=== PATIENT | male | born 1945 | race Caucasian/White ===

== ENCOUNTER → 2016-05-11 | Outpatient (CLI) | payer MEDICARE, OTHER ==
[~2016-05-11] MED LIST: ASCORBIC ACID500 M2 PO; ASPIRIN EC81 MG PO; BUSPIRONE 5MG TA5 MG PO; CENTRUM1 TAB PO; FLEXERIL10 MG PO; GEMFIBROZIL600 M1 PO; IRON65 MG PO; JANUVIA50 MG PO; LISINOPRIL 20MG20 MG PO; LORAZEPAM1 MG PO; METFORMIN1000 MG PO; METOPROLOL SUC100 M1 PO; MULTIVITAMIN1 TA2 PO; NAPROXEN SODIU500 MG PO; NATURE'S BLE1000 MCG PO; PHENERGAN 25MG.25 M1 PO; PROTEIN1 PDR PO; SYNTHROID 0.00.05 MG PO; VITAMIN B COMPL1 TA3 PO; VITAMIN B121000 MC2 SL; VITAMIN B1250 MG; VITAMIN B1250 MG PO; VITAMIN D32000 I1 PO
--- NOTE | 2016-05-11 18:55 | RADIOLOGY REPORT PS360 ---
CHEST(2 VIEWS-NOT PORTABLE) ORDERING PHYSICIAN : Edwardo Merritt MD PATIENT AGE: 70 years GENDER: Male INDICATION: Pneumonia. HISTORY of surgery right lung and cough. COMMUNITY ACQUIRED PNEMONIA PROCEDURE: CHEST(2 VIEWS-NOT PORTABLE) COMPARISON: PA and lateral chest 01/07/2015 01/01/2015 density at the lateral right base likely reflects chronic change. However if symptoms persist encourage follow-up as there are abnormalities in we do not have a baseline to confirm this as in the stable appearance FINDINGS: There is been improvement with regression of the posterior pleural effusion pleural thickening and parenchymal density since January 07, 2015. However on the frontal projection Again see Generous pleural thickening at right CP angle with elevation right hemidiaphragm noted.. Unfortunately no interval chest film since that time to establish new baseline.. On today's exam there is 3 cm x 2 cm density at lateral aspect right base towards right CP angle. I favor this is due to scarring but would benefit from follow-up. There is also suggestion of focal round density right infrahilar region measuring 2.2 cm. This may also merely reflect the scarring, or generous pulmonary artery but warrants follow-up. On lateral view small less than 1 cm likely granuloma projected over the RML appears stable Consider follow-up 2 view chest over the next 4- [address] chest follow-up would be more helpful definitive reestablish new baseline exclude any new findings . Heart is normal in size. Mediastinal structures appear satisfactory and stable. T-spine appears stable with degenerative changes and marginal osteophytes throughout. No active disease in the chest... IMPRESSION Residual pleural scarring at right CP angle & right base From old pneumonia- Persistent elevation right hemidiaphragm. On today's study there is a 2 x 3 cm height density lateral towards near right CP angle- likely reflecting old scarring, most likely old feature. Also 2.2 cm round density just inferior to the right chanelle.. May be related to old scarring However since no interval chest film since 2014 cannot confirm these as scarring and stable.. Follow-up 2 view chest or preferably follow-up CT chest suggested to further evaluate and confirm stability, and are evaluate for potential new nodular density on right
== END ==
LOC: RAD 11:39
DX: J18.9 Pneumonia, unspecified organism (principal)

== ENCOUNTER 2016-08-30 10:20 | Emergency (ER) | payer MEDICARE, OTHER ==
[~2016-08-30] VITALS: Ht 167.6 cm; Wt 97.5 kg
[2016-08-30] MEDS ORDERED: AMLODIPINE BES10 MG PO (10:35)
--- NOTE | 2016-08-30 10:42 | Emergency Room Report ---
History of Present Illness Time Seen by [id number] Presenting Problem in Triage Pt arrived:Walked Presenting Problem:PT REPORTS R FLANK PAIN AND LOWER BACK PAIN. PT REPORTS PAIN BEGAN LASTNIGHT, STATES HAS VOMITTING TWICE. 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 N Clinical Suspician of Infection? N Mental Status: 1 - Regular (Normal Baseline) Sepsis Risk:Possible Sepsis Risk Have you (or family members/close friends) recently traveled outside the [place]? N If Yes, where/when: Have you had exposure to infectious disease within the past month? N TB? Other? Specify: Comment The patient thinks he may be passing a kidney stone. He has a history of 7 prior kidney stones, but the last was many years ago. He says that he started having back pain yesterday. It initially started in his RIGHT flank but then moved to his LEFT flank. He has some generalized lower abdominal pain. 2 episodes of vomiting this morning. He has some urinary urgency for the past couple of months. His back pain increases with movement. He says he also has a history of a bad back. ALLERGIES Coded Allergies: No Known Allergies (05/19/16) Home Medications Reported Medications Biotin 5,000 MCG PO DAILY Cyanocobalamin (Vitamin B12) 2 TAB SL DAILY Multivitamin3 (Multivitamin) 1 TAB PO DAILY LISINOPRIL (Lisinopril) 20 MG PO DAILY Buspirone Hcl (Buspirone 5MG) 5 MG PO BID METFORMIN HCL (Metformin) 1,000 MG PO BID Levothyroxine Sodium (Synthroid 0.05MG) 0.75 MG PO DAILY Vitamin B Complex (Vitamin B Complex W/B12) 1 TAB PO DAILY Amlodipine Besylate (Amlodipine Besylate) 10 MG PO DAILY #30 ASCORBIC ACID (Vitamin C) 500 MG PO DAILY Thiamine Hcl (Vitamin B-1) 250 MG PO DAILY Iron 65 MG PO DAILY CHOLECALCIFEROL (VITAMIN D3) (Vitamin D-3) 2,000 IU PO TID ASPIRIN ENTERIC COATED (Aspirin EC) 81 MG PO DAILY PROTEIN SUPPLEMENT (Protein Powder) 1 PDR PO BID METOPROLOL SUCCINATE XL (Metoprolol Succinate) 100 MG PO DAILY Gemfibrozil 600 MG PO BID Lorazepam 1 MG PO PRN History Medical History General CAD? No Angina: No TN: No Hypertension? Yes Hyperlipidemia? Yes CHF? Yes DVT? No PE? Yes COPD? No Asthma? No Anemia? No GERD? No Gastric ulcers? No GI Bleed? No Hernia? Yes Thyroid Problems? Yes Hypothyroidism? Yes CVA? No Seizures? No Diabetes? Yes Insulin Dependent: No Insulin Pump: No Home FSBS? No Renal Insuffiency? No End Stage Renal Disease? No UTI? No Stones? Yes GB Disease: Yes Nephritic Syndrome? No Asplenia? No Hepatitis? No Sickle Cell Disease? No Arthritis? Yes Migraines? No Cataracts? No Glaucoma? No MRSA? Yes HIV? No TB? No Anxiety? No Depression? No Cancer? Yes Site: FACIAL SKIN CA More? No Immunization Hx DT/Tetanus 5-10 Years Ago Flu [id number] Flu Season Pneumonia Refuses Surgical Hx Previous Surgery?Y BOTH SHOULDER SURGERY BOTH KNEES REPLACE GASTRIC BYPASS GALLBLADDER ARTHROSCOPIC SURG [id number] UMBILICAL HERNIA R LUNG CLEAN OUT Family History Family Hx Diabetes Yes CAD No Hypertension Yes Hyperlipidemia Yes Cancer Yes TB No Social History Smoking Hx Smoker: Former Smoker Tobacco: No Alcohol Alcohol: No Review of Systems All Other Systems Reviewed and Negative Constitutional denies fever Gastrointestinal abdominal pain, vomiting Genitourinary see HPI. Physical Exam Vital Signs Vital Signs Date Time Temp Pulse Resp B/P Pulse O2 O2 Flow FiO2 Ox Delivery Rate 08/30 1340 82 20 147/91 94 08/30 1247 83 20 163/72 95 08/30 1134 89 20 158/95 96 08/30 1103 91 20 144/102 95 08/30 1057 20 08/30 1025 97.9 91 20 154/92 99 General Appearance normal appearance, WD/WN Eye Exam - bilateral eye normal exam, bilateral eye PERRL, bilateral eye EOMI Ear, Nose, Throat hearing grossly normal, normal ENT inspection Neck normal inspection, non-tender, supple, full range of motion Respiratory Status Yes: trachea midline, chest symmetrical, non tender chest. No: respiratory distress. Lung Sounds bilateral: normal breath sounds, lungs clear. 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 No Results/Orders Laboratory Tests 08/30/16 1035: Urine Color YELLOW, Urine Appearance CLEAR, Urine pH 6.0, Ur Specific [place] 1.015, Urine Protein TRACE H, Urine Ketones NEGATIVE, Urine Blood NEGATIVE, Urine Nitrate NEGATIVE, Urine Bilirubin NEGATIVE, Urine Urobilinogen 1.0, Ur Leukocyte Esterase 1+ H, Urine WBC 5-10, Ur Squamous Epith Cells OCC, Urine Bacteria 1+, Urine Mucus OCC, Urine Glucose NEGATIVE 08/30/16 1028: Sodium 136, Potassium 3.9, Chloride 103, Carbon Dioxide 28, BUN 22 H, Creatinine 1.1, Estimated Creat Clear 89, Estimated GFR (MDRD) 67, Glucose 136 H, Calcium 9.3, Total Bilirubin 0.4, AST 24, ALT 32, Alkaline Phosphatase 123 H , Total Protein 7.4, Albumin 3.5, Globulin 3.9 H, Albumin/Globulin Ratio 0.9 L , WBC 6.6, RBC 4.81, Hgb 14.7, Hct 44.9, MCV 93.2, RDW 13.7, Plt Count 194, MPV 7.2 L, Gran % 46.8, Gran # 3.1, Lymphocytes % 42.0, Monocytes % 5.4, Eosinophils % 4.0, Basophils % 1.7, Lymphocytes # 2.8, Monocytes # 0.4, Eosinophils # 0.3, Basophils # 0.1, PUBS MCHC 33.1, MCH 30.8 Current Medication Orders Sig/Antonia Start time Last Medication Dose Route Stop Time Status Admin Ketorolac 15 MG ONCE ONE 08/30 1100 DC 08/30 Tromethamine IV 08/30 1101 1057 Ondansetron HCl 4 MG ONCE ONE 08/30 1100 DC 08/30 IV 08/30 1101 1057 Ketorolac 0 .STK-MED ONE 08/30 1056 DC Tromethamine .ROUTE Ondansetron HCl 0 .STK-MED ONE 08/30 1055 DC .ROUTE Sodium Chloride 10 ML PRN PRN 08/30 1045 AC IV 08/31 1037 Orders Procedure Date/time Status DIET-NOTHING BY MOUTH 08/30 L Active CULTURE, URINE 08/[address] ABD & PELVIS W/O CONTRAST 08/[address] ABD/PELVIS REQ 08/30 1048 Complete IV SALINE LOCK 08/30 1037 Active URINALYSIS/COMPLETE 08/30 1037 Complete CBC WITH AUTO DIFF 08/30 1037 Complete CHEM 12 PROFILE 08/30 1037 Complete XRAY/CT/US XRAY/CT/US CT abdomen, pelvis Comment CT scan interpreted by [facility] radiologist. Faxed report received and reviewed: No obstructing renal calculi. Nonobstructive RIGHT sided renal calculi. No acute findings identified. Departure Departure Disposition DC Home or Self Care(routine) Clinical Impression Primary Impression: Low back pain Qualifiers: Chronicity: acute Back pain laterality: unspecified Sciatica presence: without sciatica Qualified Code: M54.5 - Low back pain Secondary Impressions: UTI (urinary tract infection) Qualifiers: Urinary tract infection type: site unspecified Hematuria presence: without hematuria Qualified Code: N39.0 - Urinary tract infection, site not specified Condition STABLE Patient Instructions DI for Low Back Pain, DI for Urinary Tract Infection (UTI) Additional Instructions Additional instructions for BACK PAIN: See your physician as soon as possible for further evaluation. Return immediately if back pain becomes intolerable, or if fever, numbness or weakness of your legs, loss of control of your bowels or bladder. Additional instructions for URINARY TRACT INFECTION: See your physician in 2-3 days for follow-up of culture results. Return immediately if you have an uncontrollable fever greater than 102 degrees, severe back or abdominal pain, inability to urinate, or repetetive vomiting. Prescriptions Current Visit Scripts Ciprofloxacin HCl (Cipro 500MG TAB) 500 MG PO BID #20 TAB HYDROCODONE/ACETAMINOPHEN ([place] 5-325 Tablet) 1 TAB PO Q6HP PRN pain #10 TAB Ondansetron (Zofran 4MG Odt) 4 MG PO Q8HP PRN NAUSEA AND VOMITING #10 ODT ED Critical Care Critical Care No at 0085
[2016-08-30 10:45] LABS: URINE BILIRUBIN - DIPSTICK NEGATIVE (NEG); URINE BLOOD NEGATIVE (NEG)
[2016-08-30 10:54] LABS: LYMPH # 2.8 K/mm3 (0.7-4.5)
[2016-08-30 10:55] LABS: HEMOGLOBIN 14.7 g/dL (14.1-18.0)
[2016-08-30 11:00] LABS: URINE SQUAMOUS CELLS OCC #/hpf (OCC)
--- OUTSIDE RECORDS SUMMARY | 2016-08-30 11:10 | External Medical Summary Rpt ---
Author Author [employer] Organization [employer] Address Unknown Phone Unavailable Purpose Continuity of Care Document - through 2016
--- OUTSIDE RECORDS SUMMARY | 2016-08-30 11:10 | External Medical Summary Rpt ---
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 Name Role Phone CARLINE DOUGHERTY MD, Unavailable Unavailable CARLINE DOUGHERTY MD Purpose Continuity of Care Document - 08-28-2012 through 2016 Problems Code Diagnosis DOS Provider Status 847.2 847.2 08-28-2012 [facility] E849.8 E849.8 08-28-2012 Shaheen ACCIDENT IN [facility] E885.9 E885.9 FALL 08-28-[address] [facility] SLIPPING, Hospital TRIPPING, OR STUMBLING [facility] Allergies, Adverse Reactions, Alerts Type Allergy to substance Adverse Reaction to Substance Substance Reaction Severity NO KNOWN ALLERGIES Unknown Unknown Medications Na ND Rx Da Fi Fi Am Da Di Ph RX Ph St me C No te ll ll ou ys ag ar # ys at rm s nt no ma ic us Or Da si cy ia de te s n re d KE 00 05 0 No TO 40 -1 RO 93 2- Lo LA 79 20 ng C 50 13 er 30 1 Ac MG ti /M ve L AL Vital Signs 08-28-2012 09:17 Name Value Interpretat Reference Comment ion Range Body 97.4 [degF] Temperature BP 96 mm[Hg] Diastolic BP Systolic 171 mm[Hg] Heart 84 /min Rate/Pulse O2% 95 % Respiratory 20 /min Rate 08-28-2012 09:07 Name Value Interpretat Reference Comment ion Range BP 71 mm[Hg] Diastolic BP Systolic 120 mm[Hg] Heart 81 /min Rate/Pulse O2% 94 % Respiratory 20 /min Rate Encounters Encounter Start End Date Code Location Performer Type Date Emergency MEEK DOUGHERTY MD (ER) 3 08:39 3 09:27 [facility]
--- OUTSIDE RECORDS SUMMARY | 2016-08-30 11:10 | External Medical Summary Rpt ---
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 Name Role Phone CARLINE DOUGHERTY MD, Unavailable Unavailable CARLINE DOUGHERTY MD Purpose Continuity of Care Document - 08-28-2012 through 2016 Problems Code Diagnosis DOS Provider Status 847.2 847.2 08-28-2012 [facility] [place] E849.8 E849.8 08-28-2012 Shaheen ACCIDENT IN [facility] E885.9 E885.9 FALL 08-28-2012 Shaheen FROM [facility] SLIPPING, Hospital TRIPPING, OR STUMBLING [facility] Allergies, Adverse Reactions, Alerts Type Allergy to [...] DOUGHERTY MD (ER) 3 08:39 3 09:27 [facility]
--- OUTSIDE RECORDS SUMMARY | 2016-08-30 11:11 | External Medical Summary Rpt ---
Demographics Preferred Language Turkish Marital Status Unknown [facility] Affiliation Unknown Race Unknown Ethnic Group Unknown Author Author , Organization [employer] Address Unknown Phone Unavailable Purpose Continuity of Care Document - through 2016 Immunization No patient found.
--- OUTSIDE RECORDS SUMMARY | 2016-08-30 11:11 | External Medical Summary Rpt ---
Demographics Preferred Language Welsh Marital Status Unknown Sabianism Affiliation Unknown Race Unknown Ethnic Group Unknown Author Author , Organization [employer] Address Unknown Phone Unavailable Purpose Continuity of Care Document - through 2016 Immunization No patient found.
--- OUTSIDE RECORDS SUMMARY | 2016-08-30 11:11 | External Medical Summary Rpt ---
Author Author [employer] Hicks, [employer] Organization [employer] Address Unknown Phone Unavailable
[2016-08-30] MEDS ORDERED: ZOFRAN ODT4 MG PO (13:52)
[2016-08-30] MEDS ORDERED: NORCO 325 MG-51 TAB PO (13:52)
[2016-08-30] MEDS ORDERED: CIPRO 500MG TA500 MG PO (13:52)
[2016-08-30 14:01] VITALS: BP 152/82
--- NOTE | 2016-08-30 20:25 | RADIOLOGY REPORT PS360 ---
CT ABD PELVIS W/O CONTRAST COMPARISON: CT scan abdomen pelvis 10/29/2014 HISTORY: Abdominal pain and left flank pain, low back pain TECHNIQUE: Multiple axial scans obtained from the hemidiaphragms the pelvic floor and were performed without IV or oral contrast. Sagittal and coronal reformats were evaluated as well. 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 Is minimal pleural thickening or scarring in the right posterior gutter. There is stable small hypodense lesion anterior aspect right lobe of the liver likely a small hepatic cyst. There is been previous gastric bypass procedure. The spleen and pancreas are normal, there has been a previous cholecystectomy. The adrenal glands are normal. The kidneys are normal in size and there is a tiny punctate nonobstructing calculus lower pole right kidney. There is no obstructive uropathy of either kidney. Small bowel appears normal. The appendix is normal caliber and partially air-filled. There is moderate scattered stool throughout colon. The urinary bladder and prostate are normal. There is increased density of the umbilicus at the level of the peritoneum possibly due to previous surgery for umbilical hernia. There are multilevel degenerative changes of the lower thoracic and upper lumbar spine. 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 There is mild anterolisthesis of L4 on L5 likely secondary to markedly hypertrophic facet changes which results in marked neural foraminal narrowing bilaterally at this level. There is moderate disc space narrowing at L4-5 as well and this has shown interval progression when compared to the previous CT scan 10/29/2014 There is a small vacuum phenomenon of the L5-S1 disc. IMPRESSION: 1 tiny nonobstructing calculus lower pole right kidney 2. Prominent multilevel degenerative changes of the lower thoracic and lumbar spine. Interval progression of marked degenerative disc disease L4-5 now with slightly more prominent anterolisthesis of L4 on L5 than the previous study, I agree with the [facility] report
== END 2016-08-30 14:02 | disposition home or self-care (01) ==
LOC: ER 10:20
PROVIDERS: Emergency Medicine
DX: N39.0 Urinary tract infection, site not specified (principal); M54.5 Low back pain; I10 Essential (primary) hypertension; I50.9 Heart failure, unspecified; E11.9 Type 2 diabetes mellitus without complications
CPT/HCPCS: J2405